=== PATIENT | female | born 1965 | race Caucasian/White ===

== ENCOUNTER 2018-02-27 08:07 | Emergency (ER) | payer OTHER ==
[2018-02-27 08:19] VITALS: BP 156/97
--- NOTE | 2018-02-27 09:29 | UC ---
Shara Bustillo Rebecca, scribed for Ellyn Sahu MD on 02/27/18 at 0842 . Back Pain HPI - HPI Summary HPI Summary: Pt is a 52 y/o F who presents to [facility] c/o acute on chronic back pain. Sx have been gradually worsening for the last week, especially last night. Denies any injury or trauma. Last night, she was unable to stand straight prior to going to bed. Hurts with any movement. Pain radiation down her left leg . She has been experiencing chronic back pain for 3 years which has been "liveable" while being less active. She has seen 2 neurosurgeons (Dr. Gomez and one in [facility], both of whom want to do a fusion) and her last MRI was last fall which shows spondylolisthesis of L4-L5, L5-S1, per pt. On triage, pain is severe, ranked 9/ 10 and radiates down the L buttock and anteriorly down the entire LLE. Takes Celebrex 200 mg BID, both yesterday morning and night and this morning took 3 ASA instead of Celebrex. Sx alleviated by bending and a chiropractor appointment yesterday, aggravated by standing straight. Additionally c/o left quadriceps muscle spasms and acute on chronic LLE weakness. Notes chronic foot numbness, unchanged. Denies urinary or bowel incontinence, fever, chills, dizziness, OJEDA, CP, SOB, abdominal pain, N/V/D, constipation. Negative trauma and drove herself today. - History of Current Complaint Chief Complaint: UCBackPain Stated Complaint: BACK PAIN Time Seen by Provider: 02/27/18 08:24 Hx Obtained From: Patient Hx Last Menstrual Period: current Onset/Duration: Still Present, Worse Since - 1 week, jonas. last night Severity Currently: Severe Pain Intensity: 9 Pain Scale Used: 0-10 Numeric Back Pain: Is Discrete @ - Lumbar back, Radiates To - L buttock and anterior LLE Aggravating Factor(s): Other - Standing Alleviating Factor(s): Other - Bending over, chiropractor appt. Associated Signs And Symptoms: Positive: Weakness - Acute on chronic LLE weakness, Numbness - Chronic foot. Negative: Fever, Bladder Incontinence, Bowel Incontinence - Allergies/Home Medications Allergies/Adverse Reactions: Allergies Allergy/AdvReac Type Severity Reaction Status Date / Time No Known Allergies Allergy Verified 02/27/18 08:19 Home Medications: Home Medications Ascorbic Acid TAB* [Vitamin C TAB*] 500 mg PO DAILY 02/27/18 [History Confirmed 02/27/18] Aspirin [Fanta Advanced] 1,500 mg PO DAILY PRN 02/27/18 [History Confirmed 02/27] Glucosamine Sulfate Dipot Chlr [Gnp Glucosamine Maximum S] 1,000 mg PO DAILY [History Confirmed 02/27/18] Loratadine 10 mg PO DAILY PRN 02/27/18 [History Confirmed 02/27/18] celeCOXIB CAP* [CeleBREX CAP*] 200 mg PO DAILY PRN 02/27/18 [History Confirmed 02/27/18] PMH/Surg Hx/FS Hx/Imm Hx - Additional Past Medical History Additional PMH: PMHx: Back pain Endocrine History: Other Other Endocrine History: NEGATIVE: DM Cardiovascular History: Other Other Cardiovascular History: NEGATIVE: HTN - Surgical History Surgical History: Yes Surgery Procedure, Year, and Place: SINUS SURGURY- 2013 DEAVIATED SEPTUM BUNION REMOVED LT FOOT 10 YRS AGO. CARPAL TUNNEL BILATERAL WRISTS-TUBAL LIGATION - Family History Known Family History: Positive: Other - Hx Pancreatic CA (mother) - Social History Alcohol Use: Rare Substance Use Type: None Smoking Status (MU): Never Smoked Tobacco Review of Systems Constitutional: Negative Skin: Negative Eyes: Negative ENT: Negative Respiratory: Negative Cardiovascular: Negative Gastrointestinal: Negative Genitourinary: Negative Motor: Negative Neurovascular: Negative Musculoskeletal: Other: - Acute on chronic back pain, left quadriceps muscle spasm Neurological: Weakness - Acute on chronic LLE weakness, Numbness - Chronic foot numbness Psychological: Negative All Other Systems Reviewed And Are Negative: Yes - Comments Additional Review of Systems Comments: NEGATIVE:Urinary or bowel incontinence, fever, chills, dizziness, OJEDA, CP, SOB, abdominal pain, N/V/D, constipation Physical Exam Triage Information Reviewed: Yes Appearance: Pain Distress Vital Signs: Initial Vital Signs Temp 97.8 F 02/27/18 08:12 Pulse 69 02/27/18 08:12 Resp 16 02/27/18 08:12 BP 156/97 02/27/18 08:12 Pulse Ox 100 02/27/18 08:12 Vital Signs Reviewed: Yes ENT: Positive: Hearing grossly normal. Negative: Muffled voice, Hoarse voice Neck exam: Normal Neck: Positive: Supple, Nontender Respiratory Exam: Normal Respiratory: Positive: Lungs clear, Normal breath sounds, No respiratory distress. Negative: Respiratory distress, Crackles, Rhonchi, Stridor, Wheezing Cardiovascular Exam: Normal Cardiovascular: Positive: RRR, No Murmur Musculoskeletal: Positive: Other: - L spine: tenderness is noted at the midline L4L45 and L5S1 and left SI joint . SLrt is positive on left and also has positiev contralateral side. DTR are reduces at knee on left Sensatoins intact Neurological: Positive: Alert, Muscle Tone Normal, Other: - weakness due to pain Psychological: Positive: Age Appropriate Behavior Skin Exam: Normal Skin: Negative: rashes Back Pain Course/Dx - Course Course Of Treatment: MRI 08/2017: DIFFUSE DEGENERATIVE DISC DISEASE AND FACET OSTEOARTHRITIS WITH CHANGES MOST. PROMINENT AT THE L4-L5 LEVEL. AT THAT LEVEL THERE IS MODERATE TO SEVERE SPINAL CANAL. NARROWING. We discussed tretament options and alternatives, plan to control pain . Prescribe the percocet, flexeril and medrol dose cyn, [facility]. - Differential Dx/Diagnosis Differential Diagnosis/HQI/PQRI: Herniated Disc, Strain Provider Diagnoses: Lumbar radiculopathy, spinal stenosis. Discharge - Sign-Out/Discharge Documenting (check all that apply): Discharge/Admit/Transfer - Discharge - Discharge Plan Condition: Stable Disposition: HOME Prescriptions: Cyclobenzaprine TAB* [Flexeril 10 MG TAB*] 10 mg PO TID PRN 10 Days #30 tab PRN Reason: Spasms - Back methylPREDNISolone [Medrol Dosepak 4 MG*] 0 mg PO .SEE CYN INSTRUCTION #1 tab Oxycodone HCl/Acetaminophen [Percocet 5-325 mg Tablet] 1 each PO Q8HR PRN #20 tablet MDD 3 PRN Reason: Pain Patient Education Materials: Lumbar Radiculopathy (ED), Back Pain (ED) Referrals: Ana Cristina Cantor MD [Primary Care Provider] - Bharat Gomez MD [Medical Doctor] - 3 Days Additional Instructions: Start taking the medications as prescribed. It has been prescribed to the pharmacy . Follow up with your spine in 2 to 3 days. Patients blood pressure slightly high in Urgent care today , plan follow up with PCP for better control Return to Urgent care / ER if symptoms get worse. - Billing Disposition and Condition Condition: STABLE Disposition: Home The documentation as recorded by the Shara pittman Rebecca accurately reflects the service I personally performed and the decisions made by me, Ellyn Sahu MD.
== END 2018-02-27 09:07 | disposition home or self-care (01) ==
LOC: UCEAST 08:07
DX: M54.16 Radiculopathy, lumbar region (principal); M48.061 Spinal stenosis, lumbar region without neurogenic claudication; M62.838 Other muscle spasm; R20.0 Anesthesia of skin; Z80.0 Family history of malignant neoplasm of digestive organs
CPT/HCPCS: 99212; G0463

== ENCOUNTER 2018-03-03 12:01 | Emergency (ER) | payer OTHER ==
[2018-03-03] MEDS ORDERED: Methocarbamol* 100 MG/ML 10 ML VIAL IV ONE ×2 (12:48→14:00)
[2018-03-03] MEDS ORDERED: Dexamethasone IV* 4 MG/ML 1 ML (4 MG) IV SLOW PU ONE (12:48)
[2018-03-03 12:56] LABS: ABS Basophils 0.1 10^3/ul (0-0.2); ABS Eosinophils 0.1 10^3/ul (0-0.6); ABS Lymphocytes 1.7 10^3/ul (1.0-4.8); ABS Monocytes 0.4 10^3/ul (0-0.8); ABS Neutrophils 4.6 10^3/ul (1.5-7.7); ABS Nucleated RBC 0 10^3/ul; Eosinophil % 0.8 % (0-6); Hematocrit 42 % (35-47); Hemoglobin 14.3 g/dl (12.0-16.0); Lymphocyte % 24.5 % (25-47); Mean Corpuscular HGB Conc 34 g/dl (31-36); Mean Corpuscular Hemoglobin 30 pg (27-31); Mean Corpuscular Volume 87 fL (80-97); Mean Platelet Volume 7.4 um3 (7.4-10.4); Nucleated Red Blood Cells % 0; Platelet Count 232 10^3/ul (150-450); Red Blood Count 4.84 10^6/ul (4.00-5.40); Red Cell Distribution Width 13 % (10.5-15); White Blood Count 6.7 10^3/ul (3.5-10.8)
[2018-03-03 13:19] LABS: EGFR Non-African American 70.9 (>60)
--- NOTE | 2018-03-03 14:01 | ED ---
Back Pain - HPI Summary HPI Summary: 52-year-old female presents with acute on chronic back pain. Pain is mostly in on left side of her back. Has a history of back pain in similar location. Has done PT chiropractor acupuncture. Was seen in urgent care last week and given Percocet flexeril and medrol which has been taking. Pain has not been improving. Has a worsening pain down the right leg. She states that it feels weak. Has appointment with neurosurgery next month. had MRI in July. States did not believe anything would have changes with a new MRI. No new injury. No fevers. Pain is in worsening over the past week. Hurts worse when she tries to move. 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 She's been taking Celebrex daily. She also admits to left quad pain that has gotten better with muscle relaxer. Has chronic leg numbness unchanged. No saddle anesthesia, dysuria, or loss of bowel or bladder. No abdominal pain. No nausea and no vomiting. No constipation. last MRI was last fall which shows spondylolisthesis of L4-L5, L5-S1, per pt. - History of Current Complaint Chief Complaint: EDBackInjuryPain Stated Complaint: BACK PAIN Time Seen by Provider: 03/03/18 12:30 Hx Last Menstrual Period: current Pain Intensity: 9 - Allergies/Home Medications Allergies/Adverse Reactions: Allergies Allergy/AdvReac Type Severity Reaction Status Date / Time No Known Allergies Allergy Verified 02/27/18 08:19 Home Medications: Home Medications Ascorbic Acid TAB* [Vitamin C TAB*] 500 mg PO DAILY 03/03/18 [History Confirmed 03/03/18] Cholecalciferol TAB* [Vitamin D TAB*] 400 unit PO DAILY 03/03/18 [History Confirmed 03/03/18] Cyclobenzaprine TAB* [Flexeril 10 MG TAB*] 10 mg PO TID PRN 03/03/18 [History Confirmed 03/03/18] Glucosamine CAP (NF) 1 cap PO DAILY 03/03/18 [History Confirmed 03/03/18] LoraTADine TAB(NF) [Claritin 10 MG TAB(NF)] 10 mg PO DAILY PRN 03/03/18 [ History Confirmed 03/03/18] Multivitamins/Minerals TAB* [Theragran/minerals TAB*] 1 tab PO DAILY 03/03/18 [ History Confirmed 03/03/18] celeCOXIB CAP* [CeleBREX CAP*] 200 mg PO DAILY 03/03/18 [History Confirmed 03/03] oxyCODONE/Acetamin 5/325 MG* [Percocet 5/325 TAB*] 1 tab PO Q8H PRN 03/03/18 [ History Confirmed 03/03/18] PMH/Surg Hx/FS Hx/Imm Hx Endocrine/Hematology History: Denies: Hx Diabetes Cardiovascular History: Denies: Hx Hypertension, Hx Pacemaker/ICD History: Denies: Hx Renal Disease Musculoskeletal History: Reports: Hx Scoliosis - HX EXAM AT 9 OR 11 AGE Sensory History: Denies: Hx Hearing Aid Neurological History: Denies: Hx Headaches Psychiatric History: Denies: Hx Panic Disorder - Surgical History Surgery Procedure, Year, and Place: SINUS SURGURY- 2014 DEAVIATED SEPTUM BUNION REMOVED LT FOOT 10 YRS AGO. CARPAL TUNNEL BILATERAL WRISTS-TUBAL LIGATION Infectious Disease History: No Infectious Disease History: Denies: Traveled Outside the [place] in Last 30 Days - Family History Known Family History: Positive: Other - Hx Pancreatic CA (mother) - Social History Alcohol Use: Rare Substance Use Type: Reports: None Smoking Status (MU): Never Smoked Tobacco Review of Systems Negative: Fever Negative: Chest Pain Negative: Shortness Of Breath Positive: Myalgia - back pain Positive: Paresthesia - left leg, Numbness - left leg All Other Systems Reviewed And Are Negative: Yes Physical Exam Triage Information Reviewed: Yes Vital Signs On Initial Exam: Initial Vitals Temp Pulse Resp BP Pulse Ox 97.5 F 74 16 137/93 97 03/03/18 12:19 03/03/18 12:19 03/03/18 12:19 03/03/18 12:19 03/03/18 12:19 Vital Signs Reviewed: Yes Appearance: Positive: Well-Appearing Skin: Positive: Warm, Dry Head/Face: Positive: Normal Head/Face Inspection Eyes: Positive: Normal, Conjunctiva Clear Respiratory/Lung Sounds: Positive: Clear to Auscultation, Breath Sounds Present Cardiovascular: Positive: Normal, RRR Musculoskeletal: Positive: Strength/ROM Intact - back, Other - tenderness over left SI joint, pos SLR, good pulses, decreased gross sensation left leg Neurological: Positive: Abnormal Reflex @ - patella left decreased, Babinski Left - normal Psychiatric: Positive: Normal Diagnostics - Vital Signs Vital Signs Temp Pulse Resp BP Pulse Ox 03/03/18 12:19 97.5 F 74 16 137/93 97 - Laboratory Lab Results: Lab Results 03/03/18 03/03/18 Range/Units 12:45 12:45 WBC 6.7 (3.5-10.8) 10^3/ul RBC 4.84 (4.00-5.40) 10^6/ul Hgb 14.3 (12.0-16.0) g/dl Hct 42 (35-47) % MCV 87 (80-97) fL MCH 30 (27-31) pg MCHC 34 (31-36) g/dl RDW 13 (10.5-15) % Plt Count 232 (150-450) 10^3/ul MPV 7.4 (7.4-10.4) um3 Neut % (Auto) 68.4 (38-83) % Lymph % (Auto) 24.5 L (25-47) % [place] % (Auto) 5.4 (0-7) % Eos % (Auto) 0.8 (0-6) % Baso % (Auto) 0.9 (0-2) % Absolute Neuts (auto) 4.6 (1.5-7.7) 10^3/ul Absolute Lymphs (auto) 1.7 (1.0-4.8) 10^3/ul Absolute Monos (auto) 0.4 (0-0.8) 10^3/ul Absolute Eos (auto) 0.1 (0-0.6) 10^3/ul Absolute Basos (auto) 0.1 (0-0.2) 10^3/ul Absolute Nucleated RBC 0 10^3/ul Nucleated RBC % 0 Sodium 140 (135-145) mmol/L Potassium 3.5 (3.5-5.0) mmol/L Chloride 102 (101-111) mmol/L Carbon Dioxide 32 (22-32) mmol/L Anion Gap 6 (2-11) mmol/L BUN 11 (6-24) mg/dL Creatinine 0.84 (0.51-0.95) mg/dL Est GFR ( Amer) 85.8 (>60) Est GFR (Non-Af Amer) 70.9 (>60) BUN/Creatinine Ratio 13.1 (8-20) Glucose 94 (70-100) mg/dL Calcium 9.2 (8.6-10.3) mg/dL Total Bilirubin 1.10 H (0.2-1.0) mg/dL AST 54 H (13-39) U/L ALT 41 (7-52) U/L Alkaline Phosphatase 63 (34-104) U/L C-Reactive Protein < 1.00 (<8.01) mg/L Total Protein 6.8 (6.4-8.9) g/dL Albumin 4.1 (3.2-5.2) g/dL Globulin 2.7 (2-4) g/dL Albumin/Globulin Ratio 1.5 (1-3) Result Diagrams: 03/03/18 12:45 03/03/18 12:45 Lab Statement: Any lab studies that have been ordered have been reviewed, and results considered in the medical decision making process. Re-Evaluation - Re-Evaluation First Eval Re-Evaluation Time: 15:39 Change: Improved Comment: less numbness and tingling in left leg with robaxin Back Pain Course/Dx - Course Course Of Treatment: 52-year-old female presents with acute on chronic back pain. Pain is mostly in on left side of her back. Has a history of back pain in similar location. Has done PT chiropractor acupuncture. Was seen in urgent care last week and given Percocet flexeril and medrol which has been taking. Pain has not been improving. Has a worsening pain down the right leg. She states that it feels weak. Has appointment with neurosurgery next month. had MRI in July. States did not believe anything would have changes with a new MRI. No new injury. No fevers. Pain is in worsening over the past week. Hurts worse when she tries to move. 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 She's been taking Celebrex daily. She also admits to left quad pain that has gotten better with muscle relaxer. Has chronic leg numbness unchanged. No saddle anesthesia, dysuria, or loss of bowel or bladder. No abdominal pain. No nausea and no vomiting. No constipation. last MRI was last fall which shows spondylolisthesis of L4-L5, L5-S1, per pt. on exam tenderness left side of the lower back. No midline tenderness. Tenderness over SI joint. Positive straight leg raise. Decreased gross sensation left side. Decreased patellar reflex. Babinskis normal. Discussed getting an MRI and patient declined. wbc and crp normal. Urine normal. Gave Decadron and Robaxin and feeling much better. able to ambulate with canes around ED. will have follow up with neurosurgery. patient understand and agrees with plan. - Diagnoses Differential Diagnosis/HQI/PQRI: Positive: Herniated Disc, Strain, Sprain Provider Diagnoses: Back pain Discharge - Sign-Out/Discharge Documenting (check all that apply): Discharge/Admit/Transfer - Discharge Plan Condition: Good Disposition: HOME Prescriptions: Methocarbamol TAB* [Robaxin 500 MG TAB*] 750 mg PO TID PRN #21 tab PRN Reason: Pain Patient Education Materials: Back Pain (ED) Referrals: Ana Cristina Cantor MD [Primary Care Provider] - Bharat Gomez MD [Medical Doctor] - Additional Instructions: Take muscle relaxers three times a day Use ibuprofen or Tylenol for pain every 6 hours ice/heat area, move as much as possible Follow up with primary within 5 days follow up with neurosurgery Return to ED if develop any new or worsening symptoms - Billing Disposition and Condition Condition: GOOD Disposition: Home
[2018-03-03 14:06] LABS: Urine Appearance Clear; Urine Blood Negative (Negative); Urine Color Straw; Urine Ketones Negative (Negative); Urine Protein Negative (Negative); Urine Specific Gravity 1.004 (1.010-1.030); Urine Urobilinogen Negative (Negative)
[2018-03-03] MEDS ORDERED: Lidocaine PATCH 5%* 1 PATCH TRANSDERM SCH (15:00)
[2018-03-03] MEDS ORDERED: Morphine VIAL* 4 MG/ML VIAL (1 ml vial) IV ONE (15:11)
[2018-03-03] MEDS ORDERED: Ketorolac INJ* 30 MG/ML 1 ML VIAL IV PUSH ONE (15:33)
[2018-03-03 16:42] VITALS: BP 168/92
[2018-03-03] MEDS ORDERED: Lidocaine Patch REMOVE* 1 NOTE MISC PATCH OFF ONE (21:00)
== END 2018-03-03 17:20 | disposition home or self-care (01) ==
LOC: ED 12:01
DX: M54.9 Dorsalgia, unspecified (principal); G89.29 Other chronic pain; M41.9 Scoliosis, unspecified; R20.0 Anesthesia of skin
CPT/HCPCS: 36415; 80053; 81003; 85025; 86140; 96374; 96375; 96376; 99283; A9270-GY; J1100; J1885; J2800

== ENCOUNTER 2018-05-27 07:30 | Inpatient (IN) | payer OTHER ==
[2018-07-14] MEDS ORDERED: Buffered Lidocaine 0.9% SYRIN* 5 ML/SYR SYRINGE INTRADERM ONE (12:35)
[2018-07-15] MEDS ORDERED: Famotidine IV* 10 MG/ML 2 ML (20 mg) IV ONE (06:00)
--- OUTSIDE RECORDS SUMMARY | 2018-07-15 06:05 | XMS REPORT ---
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 HTN, one sister - bipolar - [place]. Social History Type Date Description Comments Education Highest Level Completed, Industrial and Labor Master's Degree Relations. [place]. 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 Cigarette Use Never Smoked Cigarettes exposed to second hand smoke growing up. both parents smoked. ETOH Use Rare not even 1 a month. Smoking Patient has never smoked Exercise Type/Frequency Exercises regularly walks to work daily. 12-14,000 steps a day. Stairs. Stretching. Seat Belt/Car Seat Always uses seat belt Dom Violence Screen screening has been done feels safe at home, at work, and in the community. Allergies, Adverse Reactions, Alerts Date Description Reaction Status Severity Comments 02/14/2016 NKDA active Medications Medication Date Status Form Strength Qnty SIG Indications Ordering Provider Oxycodone-Acet 07/09/20 Active Tablets 5-325mg 60tabs 1 by Z01.818 Ana Cristina Mcfadden aminophen 18 mouth Devaughn, every 6 M.D. hours as needed for pain M79.605 Epinephrine 08/13/2017 Active Solution 0.3mg/0.3ML 2units inject Z91.030 Ana Cristina Mcfadden Auto-Inject as Devaughn, needed. M.D. Sumatriptan 08/13/2017 Active Tablets 50mg 9tabs take 1 G43.009 Ana Cristina Mcfadden Succinate tablet Devaughn, by mouth M.D. at onset of headache - repeat in 2 hours Celebrex 08/13/2017 Active Capsules 200mg 60caps 1 by M54.5 Ana Cristina Mcfadden mouth Devaughn, twice M.D. daily M79.605 Desloratadine 03/18/2016 Active Tablets 5mg 30tabs 1 by J30.89 Ana Cristina Mcfadden mouth Devaughn, daily M.D. Vitamin D Active Tablets 500 Unknown (Cholecalciferol ) Fluticasone Active Suspension 50mcg 16units 2 sprays Ana Cristina Mcfadden Propionate /Act each Devaughn, nostril M.D. daily Methocarbamol 03/11/2018 - Hx Tablets 500mg 135tabs 1.5 by M48.00 Shelley 07/09/2018 mouth Zari, three AGENT BASED MODELER times a day M79.605 Oxycodone-Acetaminophen 03/11/2018 - Hx Tablets 5-325mg 40tabs 1 by M48.00 Shelley 07/09/2018 mouth Zari, two AGENT BASED MODELER times a day as needed M79.605 Physical Therapy 08/28/2017 - Shahla evaluate and Ana Cristina Mcfadden 09/10/2017 treat low Ruslan Cantor back pain Adrenaclick 08/13/2017 - Hx 2unit inject as Z91.0 Ana Cristina Mcfadden 0.3MG/0.3ML 09/10/2017 s needed 30 Ruslan Cantor Physical Therapy 08/18/2016 - Hx evaluate and M54.4 Ana Cristina Mcfadden 08/13/2017 treat low 2 Ruslan Cantor back pain [place]. Mobic 08/18/2016 - Hx Tablets 7.5mg 30tab 1 by mouth M54.4 Ana Cristina L. 08/13/2017 s every 2 Ruslan Cantor morning. Ketoprofen 03/18/2016 - Hx Capsules 75mg 120ca 1 by mouth up M54.5 Ana Cristina Mcfadden 09/10/2017 ps to four times Ruslan Cantor a day with food in your stomach No Active 02/14/2016 - Hx Unknown Medications 02/14/2016 Escitalopram 02/14/2016 - Hx Tablets 10mg 30tab 1 by mouth F43.2 Ana Cristina Brown. Oxalate 08/18/2016 s every day 3 Ruslan Cantor Sumatriptan - Hx Tablets 50mg take 1 tablet Unknown Succinate 09/10/2017 by mouth at onset of headache - repeat in 2 hours Immunizations CPT Code Status Date Vaccine Lot # [id number] Given 07/09/2018 Influenza Vac, Quadrivalent, Slit Virus, Im [id number] U-Rabies Given 12/09/2012 Rabies,Unspecified 97848 Given 12/05/2012 Typhoid Immunization 05880 Given 11/13/2010 Hep A & Hep B Adult, adult dosage, for intramuscular use [id number] Given 07/19/2010 Hep A & Hep B Adult, adult dosage, for intramuscular use 91525 Given 04/17/2010 Hep A & Hep B Adult, adult dosage, for intramuscular use Vital Signs Date Vital Result Comment 07/14/2018 BP Systolic 144 mmHg BP Diastolic 82 mmHg Heart Rate 88 /min Body Temperature 97.7 F Respiratory Rate 16 /min Height 64 inches 5'4" Weight 157.00 lb BMI (Body Mass Index) 26.9 kg/m2 03/11/2018 BP Systolic 122 mmHg BP Diastolic 88 mmHg Heart Rate 72 /min Body Temperature 97.9 F Respiratory Rate 16 /min Height 64 inches 5'4" 09/11/2017 BP Systolic 118 mmHg BP Diastolic 74 mmHg Heart Rate 76 /min Body Temperature 97.0 F Height 64 inches 5'4" Weight 167.38 lb BMI (Body Mass Index) 28.7 kg/m2 08/13/2017 BP Systolic 110 mmHg BP Diastolic 80 mmHg Heart Rate 68 /min Body Temperature 98.3 F Respiratory Rate 16 /min Height 64 inches 5'4" Weight 163.00 lb BMI (Body Mass Index) 28.0 kg/m2 08/18/2016 BP Systolic 120 mmHg BP Diastolic 80 mmHg Heart Rate 72 /min Body Temperature 98.0 F Respiratory Rate 18 /min Height 63.5 inches 5'3.50" Weight 183.00 lb BMI (Body Mass Index) 31.9 kg/m2 03/18/2016 BP Systolic 110 mmHg BP Diastolic 74 mmHg Heart Rate 74 /min Body Temperature 97.9 F Respiratory Rate 18 /min Height 63.5 inches 5'3.50" Weight 170.00 lb BMI (Body Mass Index) 29.6 kg/m2 02/14/2016 BP Systolic 110 mmHg BP Diastolic 80 mmHg Heart Rate 60 /min Body Temperature 98.0 F Respiratory Rate 18 /min Height 63.5 inches 5'3.50" Weight 166.00 lb BMI (Body Mass Index) 28.9 kg/m2 Results Test Date Test Result H/L Range Note Comprehensive Metabolic Prof 08/05/2017 Sodium 146 mEq/L 134-149 Potassium 4.4 mEq/L 3.6-5.5 Chloride 108 mEq/L 94-112 Carbon Dioxide 25 mEq/L 21-32 Glucose 95 mg/dL 70-105 BUN 10 mg/dL 6-26 Creatinine 0.9 mg/dL 0.6-1.4 BUN/Creat Ratio 11.1 CALC 8.0-36.0 Calcium 9.1 mg/dL 8.6-10.2 Total Protein 6.1 g/dL Low 6.4-8.3 1 Albumin 4.1 g/dL 3.8-5.5 Globulin 2.0 g/dL 2.0-4.8 A/G Ratio 2.1 CALC 0.6-2.3 Alk. Phosphatase 68 U/L 30-110 Alt (SGPT) 21 U/L 7-35 Ast (Sgot) 24 U/L 5-34 Total Bilirubin 0.7 mg/dL 0.2-1.3 GFR Non- >60 ml/min/1.73m^ >=60 GFR >60 ml/min/1.73m^ >=60 Complete Blood Count 08/05/2017 WBC 5.2 x10^3/UL 3.6-9.6 RBC 4.61 x10^6/UL 3.90-5.70 HGB 13.8 g/dL 12.1-17.2 HCT 40 % 36-50 MCV 87.0 fL 82.2-97.4 MCH 29.9 pg 27.6-33.3 MCHC 34.5 g/dL 33.0-35.5 RDW 13.5 % 11.6-13.7 PLT 235 x10^3/UL 150-400 MPV 8.2 fL 7.4-10.4 Gran # 3.4 x10^3/UL 1.5-7.2 Lymph# 1.6 x10^3/UL 0.7-4.9 Alexander# 0.2 x10^3/UL 0.1-0.9 Gran % 63.1 % 42.2-75.2 Lymph % 32.1 % 20.5-51.1 Alexander% 4.8 % 1.7-9.3 Lipid Profile 08/05/2017 Cholesterol 176 mg/dL 120-200 Triglycerides 97 mg/dL 30-200 HDL Cholesterol 62 mg/dL 30-85 LDL (Calculated) 95 CALC 0-129 VLDL Cholesterol 19 mg/dL 0-50 HDL Risk Factor 2.8 CALC 0.0-4.4 Laboratory test finding 08/05/2017 TSH 1.27 mIU/L 0.50-6.00 Lipid Profile 03/07/2016 Cholesterol 214 mg/dL High 120-200 Triglycerides 151 mg/dL 30-200 HDL Cholesterol 53 mg/dL 30-85 LDL (Calculated) 131 CALC High 0-129 VLDL Cholesterol 30 mg/dL 0-50 HDL Risk Factor 4.0 CALC 0.0-4.4 Laboratory test finding 03/07/2016 Vitamin D25 51 30-100 2 Complete Blood Count 03/07/2016 WBC 5.4 x10^3/UL 3.6-9.6 RBC 4.72 x10^6/UL 3.90-5.70 HGB 14.1 g/dL 12.1-17.2 HCT 42 % 36-50 MCV 89.0 fL 82.2-97.4 MCH 29.9 pg 27.6-33.3 MCHC 33.5 g/dL 33.0-35.5 RDW 13.2 % 11.6-13.7 PLT 203 x10^3/UL 150-400 MPV 6.7 fL Low 7.4-10.4 Gran # 3.6 x10^3/UL 1.5-7.2 Lymph# 1.5 x10^3/UL 0.7-4.9 Alexander# 0.3 x10^3/UL 0.1-0.9 Gran % 64.1 % 42.2-75.2 Lymph % 29.8 % 20.5-51.1 Alexander% 6.1 % 1.7-9.3 Comprehensive Metabolic Prof 03/07/2016 Sodium 140 mEq/L 134-149 Potassium 4.8 mEq/L 3.6-5.5 Chloride 102 mEq/L 94-112 Carbon Dioxide 26 mEq/L 21-32 Glucose 102 mg/dL 70-105 BUN 9 mg/dL 6-26 Creatinine 0.9 mg/dL 0.6-1.4 BUN/Creat Ratio 10.0 CALC 8.0-36.0 Calcium 8.9 mg/dL 8.6-10.2 Total Protein 6.4 g/dL 6.4-8.3 Albumin 3.8 g/dL 3.8-5.5 Globulin 2.6 g/dL 2.0-4.8 A/G Ratio 1.5 CALC 0.6-2.3 Alk. Phosphatase 72 U/L 30-110 Alt (SGPT) 18 U/L 7-35 Ast (Sgot) 25 U/L 5-34 Total Bilirubin 0.6 mg/dL 0.2-1.3 GFR Non- >60 ml/min/1.73m^ >=60 GFR >60 ml/min/1.73m^ >=60 Laboratory test finding 03/07/2016 TSH 2.35 mIU/L 0.50-6.00 Free T4 0.68 ng/dL Low 0.75-1.54 3 1 RESULTS VERIFIED BY REPEAT ANALYSIS 2 FASTING 3 RESULTS VERIFIED BY REPEAT ANALYSIS Procedures Date CPT Code Description Status 08/13/2017 67013 CPHL SHQ Completed 07/08/2017 Mammogram Completed 05/06/2016 Colonoscopy Completed 04/01/2016 Mammogram Completed Encounters Type Date Location Provider CPT E/M Dx Office Visit 03/11/2018 4:15p [facility] Office [place] [address] M48.00 M79.605 Office Visit 09/11/2017 9:20a [facility] Ana Cristina Cantor M.D. 85066 M48.00 Office Visit 08/13/2017 9:00a [facility] Ana Cristina Cantor M.D. 18589 Z00.00 Z91.030 G43.009 M54.5 Office Visit 08/18/2016 2:40p [facility] Ana Cristina Cantor M.D. 91881 M54.42 Office Visit 03/18/2016 3:40p [facility] Ana Cristina Cantor M.D. 30628 M54.5 J30.89 Office Visit 02/14/2016 1:00p [facility] Office Ana Cristina Cantor M.D. 53521 Z00.00 F43.23 E55.9 Plan of Care Future Appointment(s):08/12/2018 7:00 pm - Ana Cristina Cantor M.D. at Main [facility]07/14/2018 - Any Reed, FNPJ06.9 Acute upper respiratory infection , unspecifiedAllComments:~B_~U_Medication Management~b_~u_ Patient Understands medications he 's taking? Yes No Are there Barriers to Adherence? Yes No Has the patient been asked about herbal supplements and therapies, and OTC meds? Yes No As always, we strongly encourage a healthy diet and makingphysical activity a part of your every day life. If you have questions about how or where to start, please contact the office.
--- OUTSIDE RECORDS SUMMARY | 2018-07-15 06:05 | XMS REPORT ---
:1965 External Reference #:[id number] Author Organization [employer] Address [address] [place] [address] [place] [address] Phone [phone] Care Team Providers Name Role Phone Ana Cristina Cantor MD Primary Care Physician Unavailable Payers Type Date Identification Numbers Payment Provider Subscriber Commercial Policy Number: [id number] [employer] Catalina Ruvalcaba PayID: [id number] [address] [place] [address] Problems Date Description Provider Status Onset: 08/25/2017 Low back pain Bharat Gomez MD Active Onset: 08/25/2017 Lumbar spondylosis Bharat Gomez MD Active Onset: 09/08/2017 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 Onset: 09/08/2017 Lumbar spondylolisthesis Bharat Gomez MD Active Family History Date Family Member(s) Problem(s) Comments Father Emphysema 86 Mother due to Pancreatic Cancer () - 57 Siblings 5 Social History Type Date Description Comments Lives With Alone Occupation [employer] ETOH Use Rarely consumes alcohol Smoking Patient has never smoked Recreational Drug Use Denies Drug Use Daily Caffeine Consumes on average 1 cup of hot tea per day Exercise Type/Frequency Exercises sporadically walking Allergies, Adverse Reactions, Alerts Date Description Reaction Status Severity Comments 08/21/2017 NKDA active Medications Medication Date Status Form Strength Qnty SIG Indications Ordering Provider Sumatriptan 00/00 Active Tablets 50mg As needed Unknown Succinate /0000 Epinephrine 00/00 Active Solution 0.3mg/0.3 use as Unknown /0000 Auto-Inject ML directed by prescriber Fluticasone 0000 Active Suspension 50mcg/Act 1 spray Unknown Propionate /0000 each nostril as needed Celecoxib 00 Hx Capsules 200mg take 1 Unknown /0000 capsule by - mouth twice 07/09 a day Methocarbamol 00 Hx Tablets 500mg take 1 and Unknown /0000 1/2 tablets - (750 MG) by 03/12 mouth times a day as Needed Oxycodone-Acetam Hx Tablets 5-325mg take 1 Unknown inophen /0000 tablet by - mouth every 02/10 8 hours needed for pain Cyclobenzaprine Hx Tablets 10mg take 1 Unknown HCL /0000 tablet by - mouth three 07/09 times a day if needed For Back Spasms Advil Hx Tablets 200mg as needed Unknown - 01/10 Same Hx Tablets 400mg - 07/09 Grape Seed Hx Tablets 50mg Unknown - 07/09 Glucosamine Hx Capsules 500Comp 1 by mouth Unknown Chondroitin 500 /0000 twice a day Complex - 07/09 Vitamin C Hx daily - 07/09 Vitamin D Hx daily Unknown - 07/09 Vital Signs Date Vital Result Comment 07/12/2018 Height 64 inches 5'4" Weight 159.00 lb Heart Rate 60 /min BP Systolic Sitting 150 mmHg BP Diastolic Sitting 84 mmHg Respiratory Rate 16 /min Body Temperature 96.8 F BMI (Body Mass Index) 27.3 kg/m2 04/12/2018 Height 64 inches 5'4" Weight 154.00 lb Heart Rate 82 /min BP Systolic Sitting 130 mmHg BP Diastolic Sitting 84 mmHg Respiratory Rate 16 /min Pain Level 2 BMI (Body Mass Index) 26.4 kg/m2 03/11/2018 BP Systolic Sitting 124 mmHg Lue reg cuff BP Diastolic Sitting 88 mmHg Lue reg cuff Body Temperature 97.5 F 09/08/2017 Height 64 inches 5'4" Weight 162.00 lb Heart Rate 66 /min BP Systolic Sitting 112 mmHg BP Diastolic Sitting 78 mmHg Pain Level 4 BMI (Body Mass Index) 27.8 kg/m2 08/25/2017 Height 64 inches 5'4" Weight 162.00 lb Heart Rate 60 /min BP Systolic Sitting 124 mmHg BP Diastolic Sitting 71 mmHg Pain Level 2 BMI (Body Mass Index) 27.8 kg/m2 Results Test Date Test Result H/L Range Note CBC No Diff 07/08/2018 White Blood Count 6.9 10^3/uL 3.5-10.8 Red Blood Count 4.75 10^6/uL 4.00-5.40 Hemoglobin 13.6 g/dL 12.0-16.0 Hematocrit 41 % 35-47 Mean Corpuscular Volume 87 fL 80-97 Mean Corpuscular Hemoglobin 29 pg 27-31 Mean Corpuscular HGB Conc 33 g/dL 31-36 Red Cell Distribution Width 13 % 10.5-15 Platelet Count 202 10^3/uL 150-450 Mean Platelet Volume 8.0 um3 7.4-10.4 Type & Screen 07/08/2018 Patient Blood Type O Positive Antibody Screen NEGATIVE Inr/Protime 07/08/2018 Inr 0.93 0.77-1.02 Laboratory test finding 07/08/2018 Partial Thrombo Time 30.9 seconds 26.0 -36.3 PTT Basic Metabolic Panel 07/08/2018 Sodium 140 mmol/L 135-145 Potassium 4.3 mmol/L 3.5-5.0 Chloride 106 mmol/L 101-111 Co2 Carbon Dioxide 30 mmol/L 22-32 Anion Gap 4 mmol/L 2-11 Glucose 90 mg/dL 70-100 Blood Urea Nitrogen 10 mg/dL 6-24 Creatinine 0.76 mg/dL 0.51-0.95 BUN/Creatinine Ratio 13.2 8-20 Calcium 9.1 mg/dL 8.6-10.3 Egfr Non- 79.6 >60 Egfr 96.3 >60 1 Urinalysis Profile 07/08/2018 Urine Color Straw Urine Appearance Clear Urine Specific [place] 1.005 Low 1.010-1.030 Urine pH 6.0 5-9 Urine Urobilinogen Negative Negative Urine Ketones Negative Negative Urine Protein Negative Negative Urine Leukocytes Negative Negative Urine Blood Negative Negative * * Negative 2 Urine Nitrite Negative Negative Urine Bilirubin Negative Negative Urine Glucose Negative Negative 1 Because ethnic data is not always readily available, this report includes an eGFR for both -Americans and non- Americans. The National Kidney Disease Education Program (NKDEP) does not endorse the use of the MDRD equation for patients that are not between the ages of 18 and 70, are , have extremes of body size, muscle mass, or nutritional status, or are non- or non-. According to the National Kidney Foundation, irrespective of diagnosis, the stage of the disease is based on the level of kidney function: Stage Description GFR(mL/min/1.73 m(2)) 1 Kidney damage with normal or decreased GFR 90 2 Kidney damage with mild decrease in GFR 60-89 3 Moderate decrease in GFR 30-59 4 Severe decrease in GFR 15-29 5 Kidney failure <15 (or dialysis) 2 *Ascorbic acid is present which may interfere with detection of blood. Procedures Date CPT Code Description Status 04/06/2018 44254 Nerve Conduction 05-06 Studies Completed 04/06/2018 24581 Needle Electromyography Each Extremity W/Related Completed Paraspinal Areas Encounters Type Date Location Provider CPT E/M Dx Office Visit 04/12/2018 [facility] 27614 M47.26 4:00p [facility] [place] Gomez MD M43.16 M51.27 M48.061 Office Visit 03/11/2018 9:00a [facility] [address]3662 M47.26 [facility] [place] Gomez MD M43.16 M54.5 Office Visit 09/08/2017 9:00a [facility] 34284 M47.26 [facility] [place] Gomez MD M43.16 M54.5 Office Visit 08/25/2017 2:30p [facility] 39991 M47.26 [facility] [place] Gomez MD Plan of Care Future Appointment(s):10/13/2018 8:30 am - Bharat Gomez [facility]/16/2018 3:00 pm - Bharat Gomez MD at [facility]07/23/2018 11:45 am - Bharat Gomez MD at [facility]/15/2018 7:30 am - Bharat Gomez MD at [facility]/12/2018 - Bharat Gomez MDM47.26 Other spondylosis with radiculopathy, lumbar regionFollow up:RV one week, one month, three months. Patient may have excuse off work for 4 weeks after surgery.M43.16 Spondylolisthesis, lumbar region
--- OUTSIDE RECORDS SUMMARY | 2018-07-15 06:05 | XMS REPORT ---
:1965 External Reference #:[id number] Author Organization [facility] Address [address] [place] [address] Phone [phone] Care Team Providers Name Role Phone Ana Cristina Cantor Care Team Information Director Of Email Marketing Unavailable Ana Cristina Cantor Primary Care Physician Unavailable Payers Type Date Identification Numbers Payment Provider Subscriber Health Maintenance Effective: Policy Number: Boni Ruvalcaba Organization (O) 03/07/2016 [id number] [facility] Group Number: [id number] [address] Group Name: [place] [address] PayID: [id number] Problems Description No Information Family History Date Family Member(s) Problem(s) Comments Children None Siblings 3 sisters, 2 bothers. HTN, one sister - bipolar - [place]. Social History Type Date Description Comments Education Highest Level Completed, Industrial and Labor Master's Degree Relations. [place]. 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 Cigarette Use Never Smoked Cigarettes exposed to [...] Solution 0.3mg/0.3ML 2units inject Z91.030 Ana Cristina LKarlene Auto-Inject as Devaughn, needed. M.D. Sumatriptan 08/13/2017 Active Tablets 50mg 9tabs take 1 G43.009 Ana Cristina L. Succinate tablet Devaughn, by mouth M.D. at onset of headache - repeat in 2 hours Celebrex 08/13/2017 Active Capsules 200mg 60caps 1 by M54.5 Ana Cristina LKarlene mouth Devaughn, twice M.D. daily M79.605 Desloratadine 03/18/2016 Active Tablets 5mg 30tabs 1 by J30.89 Ana Cristina LKarlene mouth Devaughn, daily M.D. Vitamin D Active Tablets 500 Unknown (Cholecalciferol ) Fluticasone Active Suspension 50mcg 16units 2 sprays Ana Cristina Mcfadden Propionate /Act each Devaughn, nostril M.D. daily Methocarbamol 03/11/2018 - Hx Tablets 500mg 135tabs 1.5 by M48.00 Shelley 07/09/2018 mouth Zari, three MAT WORKER times a day M79.605 Oxycodone-Acetaminophen 03/11/2018 - Hx Tablets 5-325mg 40tabs 1 by M48.00 Shelley 07/09/2018 mouth Zari, two MAT WORKER times a day as needed M79.605 Physical Therapy 08/28/2017 - Hx evaluate and Ana Cristina Mcfadden 09/10/2017 treat low Ruslan Cantor back pain Adrenaclick 08/13/2017 - Hx 2unit inject as Z91.0 Ana Cristina Mcfadden 0.3MG/0.3ML 09/10/2017 s needed 30 Ruslan Cantor Physical Therapy 08/18/2016 - Hx evaluate and M54.4 Ana Cristina Mcfadden 08/13/2017 treat low 2 Ruslan Cantor back pain the lydia. Mobic 08/18/2016 - Hx Tablets 7.5mg 30tab 1 by mouth M54.4 Ana Cristina LKarlene 08/13/2017 s every 2 Ruslan Cnator morning. Ketoprofen 03/18/2016 - Hx Capsules 75mg 120ca 1 by mouth up M54.5 Ana Cristina L. 09/10/2017 ps to four times Ruslan Cantor a day with food in your stomach No Active 02/14/2016 - Hx Unknown Medications 02/14/2016 Escitalopram 02/14/2016 - Hx Tablets 10mg 30tab 1 by mouth F43.2 Ana Cristina L. Oxalate 08/18/2016 s every day 3 Rusaln Cantor Sumatriptan - Hx Tablets 50mg take 1 tablet Unknown Succinate 09/10/2017 by mouth at onset of headache - repeat in 2 hours Immunizations CPT Code Status Date Vaccine Lot # [id number] Given 12/09/2012 Rabies,Unspecified [id number] Given 12/05/2012 Typhoid Immunization 48419 Given 11/13/2010 Hep A & Hep B Adult, adult dosage, for intramuscular use 72328 Given 07/19/2010 Hep A & Hep B Adult, adult dosage, for intramuscular use 17245 Given 04/17/2010 Hep A & Hep B Adult, adult dosage, for intramuscular use Vital Signs Date Vital Result Comment 03/11/2018 BP Systolic 122 mmHg BP Diastolic [...] 3.4 x10^3/UL 1.5-7.2 Lymph# 1.6 x10^3/UL 0.7-4.9 Charlotte# 0.2 x10^3/UL 0.1-0.9 Gran % 63.1 % 42.2-75.2 Lymph % 32.1 % 20.5-51.1 [place]% 4.8 % 1.7-9.3 Lipid Profile 08/05/2017 Cholesterol [...] 3.6 x10^3/UL 1.5-7.2 Lymph# 1.5 x10^3/UL 0.7-4.9 Charlotte# 0.3 x10^3/UL 0.1-0.9 Gran % 64.1 % 42.2-75.2 Lymph % 29.8 % 20.5-51.1 Charlotte% 6.1 % 1.7-9.3 Comprehensive Metabolic Prof 03/07/2016 [...] Procedures Date CPT Code Description Status 08/13/2017 77719 CPHL SHQ Completed 07/08/2017 Mammogram Completed 05/06/2016 Colonoscopy Completed 04/01/2016 Mammogram Completed Encounters Type Date Location Provider CPT E/M Dx Office Visit 03/11/2018 4:15p [facility] [place] [address] M48.00 M79.605 Office Visit 09/11/2017 9:20a [facility] Ana Cristina Cantor M.D. 88073 M48.00 Office Visit 08/13/2017 9:00a [facility] Ana Cristina Cantor M.D. 80950 Z00.00 Z91.030 G43.009 M54.5 Office Visit 08/18/2016 2:40p [facility] Office Ana Cristina Cantor M.D. 75256 M54.42 Office Visit 03/18/2016 3:40p [facility] Office Ana Cristina Cantor M.D. 66721 M54.5 J30.89 Office Visit 02/14/2016 1:00p [facility] Office Ana Cristina Cantor M.D. 12456 Z00.00 F43.23 E55.9 Plan of Care 07/09/2018 - Ana Cristina Cantor M.D.Z01.818 Encounter for other preprocedural examinationNew Medication:Oxycodone-Acetaminophen 5-325 mgComments:Stop the vit d, Vit c, grapeseed extract, celebrex. will use oxycodone for pain control between now and surgery. If all your blood work and ekg are normal you are cleared for surgery. CXR is normal. You should do well with surgery, you are in excellent health. Take care that you don't get constipated before surgery. You can use miralax and colace both over the counter. You will most likely need even more for a while after surgery. Please start a bowel regimen with the first pain pill to include Miralax as well as a stool softener.Follow up:early August for post op visit.M47.26 Other spondylosis with radiculopathy, lumbar owwrobG91.16 Spondylolisthesis, lumbar nxhnakL01.5 Low back painZ23 Encounter for immunizationComments:flu shot todayAllComments:~B_~U_Medication Management~b _~u_ Patient Understands medications she's taking? Yes No Are there Barriers to Adherence? Yes No Has the patient been asked about herbal supplements and therapies, and OTC meds? Yes No
[2018-07-15] MEDS ORDERED: Famotidine IV* 10 MG/ML 2 ML (20 mg) ONE (06:14)
[2018-07-15] MEDS ORDERED: ceFAZolin 2 GM PREMIX in ORs 0 GM/0 ML BAG IVPB ONE (06:14)
[2018-07-15] MEDS ORDERED: HYDROmorphone INJ1* 1 MG/ML SYRINGE ONE (06:17)
[2018-07-15 06:54] VITALS: BP 143/84
== END 2018-07-16 16:37 | disposition home or self-care (01) | DRG 552 ==
LOC: AA 07-15 05:59
PROVIDERS: ADMIT Neurological Surgery; ATTEND Neurological Surgery
DX: M47.26 Other spondylosis with radiculopathy, lumbar region (principal)
CPT/HCPCS: J0690; J1170

== ENCOUNTER 2018-08-04 05:44 | Inpatient (IN) | payer OTHER ==
[~2018-08-04 05:44] MED LIST: Buffered Lidocaine 0.9% SYRIN* 5 ML/SYR SYRINGE INTRADERM ONE
--- OUTSIDE RECORDS SUMMARY | 2018-08-04 05:47 | XMS REPORT | Continuity of Care Document ---
:1965 External Reference #:[id number] Author Name Jean-Paul Rivera MD Address [address] [place] [address] Care Team Providers Name Role Phone Ana Cristina Cantor M.D. Care Team Information [employer] Consultant Unavailable Ana Cristina Cantor M.D. Primary Care Physician Unavailable Payers Type Date Identification Numbers Payment Provider Subscriber Policy Number: [id number] [employer] Catalina Ruvalcaba Group Number: [id number] [id number] Group Name: [id number] [place] [address] PayID: [id number] Advance Directives Description No Information Available Problems Description No Information Family History Date Family Member(s) Problem(s) Comments General Cancer General Hearing Loss General Heart Attack General Heart Disease Social History Type Date Description Comments Sex Unknown Occupation [employer] Tobacco Use Start: Unknown Never Smoked Cigarettes Tobacco Use Start: Unknown Never Smoked Cigars Tobacco Use Start: Unknown Never Smoked A Pipe Smokeless Tobacco Never Used Smokeless Tobacco ETOH Use Current Alcohol Use Occasionally Tobacco Use Start: Unknown Patient has never smoked Smoking Status Reviewed: 07/22/18 Patient has never smoked Allergies, Adverse Reactions, Alerts Description No Known Drug Allergies Medications Medication Date Status Form Strength Qnty SIG Indications Ordering Provider Imitrex 09/23/ Active Tablets 50mg 9tabs 1 tab by Jean-Paul 2017 mouth for E. Miguel, migraine. MD may repeat in 2 hours if symptoms persist. no more than 2 tabs in 24 hrs or 9 tabs in 1 month Fluticasone 07/11/ Active Suspension 50mcg/Act 16gm 2 sprays Jean-Paul Propionate 2016 each E. Miguel, nostril MD daily Desloratadine / Active Tablets 5mg 1 by Devaughn, 0000 mouth Ana Cristina every day M.D. Multivitamins 00/ Active Capsules 1 by Unknown 0000 mouth every day Vitamin E 00/00/ Active Unknown 0000 Zinc 00/00/ Active Unknown 0000 Vitamin C 00/00/ Active Unknown 0000 Celecoxib /00/ Active Capsules 200mg Unknown 0000 Grape Seed / Active Capsules 250-50mg Unknown 0000 Vitamin C Plus / Active Tablets 500mg daily Unknown 0000 Glucosamine / Active Capsules 1500Com 1 by Unknown Chondroitin 0000 mouth 1500 Complex every day Rigoberto-E / Active Tablets 400mg as Unknown 0000 directed Probiotic / Active Capsules 1 by Unknown Acidophilus 0000 mouth every day No Active 07/11/ Unknown Medications 2015 - 2015 Medrol 07/11/ Hx TBPK 4mg 1pack take as Jean-Paul 2015 - directed Dk Rivera 07/21/ 2017 Augmentin 06/15/ Hx Tablets 875mg 20tabs 1 by 289.1-1 Jean-Paul 2007 - mouth Dk Rivera, 07/11/ twice A 2015 day for 10 days. Nyquil / Hx Liquid Unknown 2015 Dayquil / Hx Liquid Unknown 2015 Escitalopram / Hx Tablets 10mg 1 by Devaughn, Oxalate 0000 - mouth Ana Cristina 07/21/ every day M.D. 2017 Ketoprofen / Hx Capsules 75mg Devaughn, 0000 - Ana Cristina 07/21/ M.D. 2017 Aleve / Hx Capsules 220mg as needed Unknown 2017 Immunizations Description No Information Available Vital Signs Date Vital Result Comment 07/22/2018 11:25am Weight 161.00 lb Weight 73.030 kg Height 64 inches 5'4" Height in cm's 162.6 cm BMI (Body Mass Index) 27.6 kg/m2 09/23/2016 8:53am BP Systolic 133 mmHg BP Diastolic 88 mmHg Heart Rate 80 /min Respiratory Rate 17 /min Weight 176.00 lb Weight 79.834 kg Height 64 inches 5'4" Height in cm's 162.6 cm BMI (Body Mass Index) 30.2 kg/m2 07/11/2016 10:54am BP Systolic 127 mmHg BP Diastolic 76 mmHg Heart Rate 68 /min Respiratory Rate 17 /min Weight 176.38 lb Weight 80.000 kg Height 64 inches 5'4" Height in cm's 162.6 cm BMI (Body Mass Index) 30.3 kg/m2 06/15/2008 4:27pm BP Systolic 132 mmHg BP Diastolic 92 mmHg Heart Rate 75 /min Respiratory Rate 16 /min 05/25/2008 10:54am BP Systolic 150 mmHg BP Diastolic 87 mmHg Heart Rate 77 /min Respiratory Rate 16 /min Results Test Date Facility Test Result H/L Range Note [facility] 08/26/2016 [facility] Bermuda Grass <0.35 kU/L N 1 Allergy Panel c/o Department of [place] [address] [phone] Silver Birch IgE <0.35 kU/L N 2 [place] Maple IgE <0.35 kU/L N 3 Mountain Warrick Allergen IgE <0.35 kU/L N 4 Cocklebur Allergen IgE <0.35 kU/L N 5 Tiger Allergen IgE <0.35 kU/L N 6 Dandelion Allergen IgE <0.35 kU/L N 7 Elm Tree Allergen IgE <0.35 kU/L N 8 Congolese Plantain Allergen IgE <0.35 kU/L N 9 Blooming Valley Allergen IgE <0.35 kU/L N 10 [place] Tree Allerg IgE <0.35 kU/L N 11 [facility] Blue (February) Grass IgE <0.35 kU/L N 12 Driscoll's Quarter Allergen IgE <0.35 kU/L N 13 [place]on Tree Allergen IgE <0.35 kU/L N 14 Greenwood Allergen IgE <0.35 kU/L N 15 Rough Pigweed Allergen IgE <0.35 kU/L N 16 Wyandot Tree Allergen IgE <0.35 kU/L N 17 Common Ragweed (Short) Allerge 0.37 kU/L N 18 Giant Ragweed Allergen IgE <0.35 kU/L N 19 Gates Tree Allergen IgE <0.35 kU/L N 20 [place] Grass Allergen IgE <0.35 kU/L N 21 Sheep Dormont Allergen IgE <0.35 kU/L N 22 Damian Grass Allergen IgE <0.35 kU/L N 23 White Ian Allergen IgE <0.35 kU/L N 24 [place] Tree Allergen IgE <0.35 kU/L N 25 [facility] 08/26/2016 [facility] Black/White Pepper < 0.35 kU/L N 26 Allergy Panel c/o Department [place] [address] [phone] Egg White Allergen IgE <0.35 kU/L N 27 Cat Epithelium Allergen IgE <0.35 kU/L N 28 Chicken Meat Allergen IgE <0.35 kU/L N 29 Chocolate Allergen IgE <0.35 kU/L N 30 Coconut Allergen IgE <0.35 kU/L N 31 Cockroach Allergen IgE <0.35 kU/L N 32 Woodbridge Allergen IgE <0.35 kU/L N 33 Cow Epithelium Allergen IgE <0.35 kU/L N 34 Dog Dander Allergen IgE <0.35 kU/L N 35 Egg Yolk Allergen IgE <0.35 kU/L N 36 Feather Mix Allergy Screen <0.35 kU/L N 37 Garlic Allergen IgE <0.35 kU/L N 38 Guinea Pig Allergen IgE <0.35 kU/L N 39 Horse Dander Allergen IgE <0.35 kU/L N 40 Malt Allergen IgE Antibody <0.35 kU/L N 41 Cow's Milk Allergen IgE <0.35 kU/L N 42 Onion Allergen IgE <0.35 kU/L N 43 Maiden Rock Allergen IgE <0.35 kU/L N 44 Rice Allergen IgE <0.35 kU/L N 45 Soybean Allergen IgE <0.35 kU/L N 46 Tomato Allergen IgE <0.35 kU/L N 47 Wheat Allergen IgE <0.35 kU/L N 48 Khan's Yeast Allergen IgE <0.35 kU/L N 49 [facility] 08/26/2016 [facility] Alternaria tenuis < 0.35 kU/L N 50 Allergy Panel c/o Department of [place] [address] [phone] A pullulans IgE Allergen <0.35 kU/L N 51 Aspergillus Fumigatus IgE <0.35 kU/L N 52 Botrytis Allergen IgE <0.35 kU/L N 53 Ayde albicans Allergen IgE <0.35 kU/L N 54 Cladosporium herbarum IgE <0.35 kU/L N 55 Dermatophagoides farinae IgE <0.35 kU/L N 56 Dermatophagoides pteronyssinus <0.35 kU/L N 57 Epicoccum Allergen IgE <0.35 kU/L N 58 Fusarium moniliforme Allergen <0.35 kU/L N 59 Helminthosporium halodes IgE <0.35 kU/L N 60 House Dust/Michele Allergen IgE <0.35 kU/L N 61 House Dust/Floyd Cassy IgE <0.35 kU/L N 62 Mucor racemosus Allergen IgE <0.35 kU/L N 63 Penicillium notatum Allerg IgE <0.35 kU/L N 64 Rhizopus nigricans Allerg IgE <0.35 kU/L N 65 Stemphyllium IgE Allergen <0.35 kU/L N 66 Trichophyton rubrum Allergen <0.35 kU/L N 67 Ustilago nuda IgE Allergen <0.35 kU/L N 68 1 Class 0 (Negative <0.35) 2 Class 0 (Negative <0.35) 3 Class 0 (Negative <0.35) 4 Class 0 (Negative <0.35) 5 Class 0 (Negative <0.35) 6 Class 0 (Negative <0.35) 7 Class 0 (Negative <0.35) 8 Class 0 (Negative <0.35) 9 Class 0 (Negative <0.35) 10 Class 0 (Negative <0.35) 11 Class 0 (Negative <0.35) 12 Class 0 (Negative <0.35) 13 Class 0 (Negative <0.35) 14 Class 0 (Negative <0.35) 15 Class 0 (Negative <0.35) 16 Class 0 (Negative <0.35) 17 Class 0 (Negative <0.35) 18 Class 1 (Equivocal 0.35-0.69) 19 Class 0 (Negative <0.35) 20 Class 0 (Negative <0.35) Test Performed by: [address] [address] Fur Floor Worker: Ayan Perera II, M.D., Ph.D. 21 Class 0 (Negative <0.35) 22 Class 0 (Negative <0.35) 23 Class 0 (Negative <0.35) 24 Class 0 (Negative <0.35) 25 Class 0 (Negative <0.35) 26 Class 0 (Negative <0.35) 27 Class 0 (Negative <0.35) 28 Class 0 (Negative <0.35) 29 Class 0 (Negative <0.35) 30 Class 0 (Negative <0.35) 31 Class 0 (Negative <0.35) 32 Class 0 (Negative <0.35) 33 Class 0 (Negative <0.35) 34 Class 0 (Negative <0.35) 35 Class 0 (Negative <0.35) 36 Class 0 (Negative <0.35) 37 Class 0 (Negative <0.35) ADDITIONAL INFORMATION Feather Panel 2: Goose feathers Chicken feathers Duck feathers Dresser feathers Analyte Specific Reagent: This test was developed and its performance characteristics determined by [facility]. It has not been cleared or approved by the U.S. Food and Drug Administration. 38 Class 0 (Negative <0.35) 39 Class 0 (Negative <0.35) 40 Class 0 (Negative <0.35) Test Performed by: [place] [address] Fur Floor Worker: Ayan Perera II, M.D., Ph.D. 41 Class 0 (Negative <0.35) 42 Class 0 (Negative <0.35) 43 Class 0 (Negative <0.35) 44 Class 0 (Negative <0.35) 45 Class 0 (Negative <0.35) 46 Class 0 (Negative <0.35) 47 Class 0 (Negative <0.35) 48 Class 0 (Negative <0.35) 49 Class 0 (Negative <0.35) 50 Class 0 (Negative <0.35) 51 Class 0 (Negative <0.35) 52 Class 0 (Negative <0.35) 53 Class 0 (Negative <0.35) 54 Class 0 (Negative <0.35) 55 Class 0 (Negative <0.35) 56 Class 0 (Negative <0.35) 57 Class 0 (Negative <0.35) 58 Class 0 (Negative <0.35) 59 Class 0 (Negative <0.35) 60 Class 0 (Negative <0.35) 61 Class 0 (Negative <0.35) 62 Class 0 (Negative <0.35) Test Performed by: [facility] [address] Fur Floor Worker: Ayan Perera II, M.D., Ph.D. 63 Class 0 (Negative <0.35) 64 Class 0 (Negative <0.35) 65 Class 0 (Negative <0.35) 66 Class 0 (Negative <0.35) 67 Class 0 (Negative <0.35) 68 Class 0 (Negative <0.35) ADDITIONAL INFORMATION This test was developed using an analyte specific reagent. Its performance characteristics were determined by [facility] in a manner consistent with CLIA requirements. This test has not been cleared or approved by the U.S. Food and Drug Administration. Procedures Date Code Description Status 07/22/2018 12993 Nasal Endoscopy, Diagnostic Completed 07/11/2016 21095 Nasal Endoscopy, Diagnostic Completed 05/25/2008 79646 Fiberoptic Laryngoscopy Completed Encounters Type Date Location Provider Dx Diagnosis Office Visit 09/23/2016 9:00a Sharon,After 09/07/07 Jean-Paul Rivera MD R51 Headache G50.1 Atypical facial pain Office Visit 08/19/2016 9:45a Sharon,After 09/07/07 Jean-Paul Rivera MD R51 Headache J30.9 Allergic rhinitis, unspecified J32.9 Chronic sinusitis, unspecified Office Visit 07/11/2016 11:00a Sharon,After 09/07/07 Jean-Paul Root J31.0 Chronic MD Miguel rhinitis R09.82 Postnasal drip R42 Dizziness and giddiness Office Visit 06/15/2008 4:15p Sharon,After 09/07/07 Jean-Paul Root 784.1 Pain Of MD Miguel Throat 289.1-1 Adenitis, Cervical/Chronic Office Visit 05/25/2008 10:45a Sharon,After 09/07/07 Jean-Paul Root 784.1 Pain Kashif Rivera MD Throat 306.4-1 Globus Plan of Treatment No Information Available
[2018-08-04] MEDS ORDERED: Acetaminophen TAB* 325 MG PO ONE (06:00)
[2018-08-04] MEDS ORDERED: Gabapentin CAP(*) 300 MG PO ONE (06:00)
[2018-08-04] MEDS ORDERED: Gabapentin CAP(*) 300 MG ONE (06:47)
[2018-08-04] MEDS ORDERED: Acetaminophen TAB* 325 MG ONE (06:48)
[2018-08-04] MEDS ORDERED: Buffered Lidocaine 0.9% SYRIN* 5 ML/SYR SYRINGE ONE (06:48)
[2018-08-04] MEDS ORDERED: ceFAZolin 2 GM PREMIX in ORs 2 GM/50 ML BAG IVPB ONE (06:48)
[2018-08-04] MEDS ORDERED: Thrombin 5,000 UNITS* 1 APPLIC KIT - topical use - TOPICAL ONE (06:58)
[2018-08-04] MEDS ORDERED: Lidocaine 1% MPF wEPI 200,000* 30 ML SDV ONE (06:58)
[2018-08-04] MEDS ORDERED: Bacitracin IV* 50,000 UNITS INJ ONE (06:58)
[2018-08-04] MEDS ORDERED: fentaNYL* 50 MCG/ML 2 ML VIAL (100 MCG VIAL) ONE ×4 (07:17→12:59)
[2018-08-04] MEDS ORDERED: Midazolam* 1 MG/ML 2 ML VIAL (2 MG) ONE (07:17)
[2018-08-04] MEDS ORDERED: Cisatracurium* 2 MG/ML MDV 5 ML ONE (08:28)
[2018-08-04] MEDS ORDERED: Lidocaine 2% PF * 5 ML VIAL ONE (08:28)
[2018-08-04] MEDS ORDERED: DiMENhydriNATE IV* 50 MG/ML VIAL IV PUSH PRN (09:28)
[2018-08-04] MEDS ORDERED: diPHENhydraMINE IV* 50 MG/ML 1 ml VIAL (BENADRYL) IV PRN (09:28)
[2018-08-04] MEDS ORDERED: Ondansetron INJ* 2 MG/ML VIAL IV PRN (09:28)
[2018-08-04] MEDS ORDERED: Scopolamine 1.5 mg* PATCH TRANSDERM PRN (09:28)
[2018-08-04] MEDS ORDERED: Naloxone* 0.4 MG/ML 1 ML VIAL IV PRN (09:28)
[2018-08-04] MEDS ORDERED: PROCHLORPERAZINE INJ 5 MG/ML 2 ML VIAL IV PRN (09:28)
[2018-08-04] MEDS ORDERED: Acetaminophen TAB* 325 MG PO PRN (09:28)
[2018-08-04] MEDS ORDERED: Propofol* 10 MG/ML 20 ML BTL ONE ×2 (10:10→10:49)
[2018-08-04] MEDS ORDERED: EPHEDrine (Pressors)* 50 MG/ML VIAL ONE (10:19)
[2018-08-04] MEDS ORDERED: Ondansetron INJ* 2 MG/ML VIAL ONE ×2 (10:49→14:20)
[2018-08-04] MEDS ORDERED: Dexamethasone IV* 4 MG/ML 1 ML (4 MG) ONE (10:49)
[2018-08-04] MEDS ORDERED: Famotidine IV* 10 MG/ML 2 ML (20 mg) ONE (10:49)
[2018-08-04] MEDS: fentaNYL* 50 MCG/ML 2 ML VIAL (100 MCG VIAL) IV PRN ×4 (13:01→13:51)
[2018-08-04] MEDS ORDERED: HYDROmorphone INJ1* 1 MG/ML SYRINGE ONE (13:20)
[2018-08-04] MEDS ORDERED: oxyCODONE/Acetamin 5/325 MG* TAB ONE ×2 (13:20→13:57)
[2018-08-04] MEDS: oxyCODONE/Acetamin 5/325 MG* TAB PO PRN ×2 (13:23→13:58)
[2018-08-04] MEDS: HYDROmorphone INJ1* 1 MG/ML SYRINGE IV PRN ×2 (13:29→13:55)
[2018-08-04] MEDS ORDERED: Magnesium Hydroxide LIQ* 30 ML UDC PO PRN (14:03)
[2018-08-04] MEDS ORDERED: HYDROcodone/ACETAMIN 5-325 MG* 1 TAB PO PRN (14:03)
[2018-08-04] MEDS: HYDROcodone/ACETAMIN 5-325 MG* 1 TAB PO PRN (18:15)
[2018-08-05] MEDS: HYDROcodone/ACETAMIN 5-325 MG* 1 TAB PO PRN ×3 (01:22→11:31)
--- NOTE | 2018-08-05 08:58 | OP ---
DATE OF OPERATION: 08/04/18 - ROOM #349 DATE OF : 63 SURGEON: Bharat Gomez MD TUMBLER OPERATOR: ANNE MARIE Loco. The case was done with the assistance of surgical PA because of the complexity of the case. PRE-OP DIAGNOSES: Degenerative disk disease and grade 1 to 2 spondylolisthesis , L4- 5. POST-OP DIAGNOSES: Degenerative disk disease and grade 1 to 2 spondylolisthesis , L4-5. OPERATIVE PROCEDURE: The patient underwent a left L4-5 minimally invasive TLIF with PEEK interbody expandable cage, DBX autologous iliac crest bone graft through a separate incision. Intraoperative navigation with intraoperative electrophysiological monitoring with bilateral L4 and L5 pedicle screws. INDICATIONS: The patient is a very pleasant 52-year-old female with complaints of back pain radiating mostly to the left lower extremity with MRI findings consistent with a grade 2 spondylolisthesis at L4-5, which was progressing in severity. The patient unfortunately failed conservative treatment modalities and she was offered the option of surgical intervention. After explaining the expectations, limitations, and possible complications of the procedure to the patient and one of her close friends with complications including but not limited to bleeding, infection, risk of injury to adjacent structures, coma, paralysis, , need for additional procedures, anesthesia risks, stroke, blindness, cancer, instability, hardware failure, adjacent level disease, pseudoarthrosis, spinal fluid leak, loss of bladder or bowel control, need for tracheostomy or gastrostomy, need for prolonged ICU stay, development of delayed hematoma, injury to the big vessels or intra-abdominal content, scar formation, neuropathy, the patient was agreeable to proceed with surgery and informed consent was obtained. She understood that her condition may not improve, in fact may get worse after surgery and that she may need to have additional procedure in the future. She also understood that operative plan may be modified according to intraoperative findings and conditions and that surgery may be done in more than one stage or abandoned. ESTIMATED BLOOD LOSS: 30 cc. COMPLICATIONS: None. DESCRIPTION OF PROCEDURE: The patient was brought to the operating room and was placed under general anesthesia by the anesthesia team. She was carefully positioned prone on Brenton table and all bony prominences were meticulously padded. Her skin was prepped and draped in the standard fashion. After appropriate surgical pause and patient identification, a small incision over the right iliac crest was marked on the skin and was infiltrated with local anesthetic. The Corex needle was then inserted and autologous bone graft was harvested and was kept for the arthrodesis part of the procedure. Through the same incision, the pin for the stereotactic navigating star was inserted and secured in place. Then, intraoperative OR imaging was obtained and the patient' s data was transferred to the navigation platform. Under stereotactic navigation, 2 paramedian incisions were marked on the skin and were infiltrated with local anesthetic. The skin incision was performed with a #10 surgical blade and under stereotactic navigation, the pedicles of L4 and L5 were cannulated with high-speed drill and awl-tip tap and pedicle screws were inserted. Medtronic Voyager ATS screws were inserted with 7.5 x 40 mm length for the L5 level and 6.5 x 45 mm length for L4. Under stereotactic navigation, a separate incision on the fascia on the left side was performed and over a series of dilators, an 18-mm METRx tubular retractor was inserted and was centered over the left L4 sara-lamina and the medial portion of the facet. Operative microscope was brought into the field and a small residual amount of paraspinal musculature was then gently elevated with Bovie cautery and the lamina, on the left side, the medial part of the facet as well as the lateral part of the pars was easily identified and appropriate surgical level and borders of the exposure were identified with the use of intraoperative navigation. A high-speed drill was used to fashion a partial laminectomy of L4 extended slightly towards the right side and removing the medial part of the facet en bloc, which was saved and used for the arthrodesis part of the procedure. The yellow ligament was gently removed with Kerrison punches and the thecal sac and the left L5 nerve root was readily identified. Of note, the thecal sac was found to be under significant amount of tension as expected from the preoperative imaging. With use of bipolar cautery, the epidural vessels were gently coagulated and the dura was gently retracted towards the midline with nerve root retractor. At this time, the diskectomy and preparation of the disk space was performed after incising annulus fibrosus of L4-5 with 15 surgical blade and for the preparation of the disk space, stereotactic guided instrumentation was used. A Medtronic Voyager Elevate expandable cage 8 mm x 28 mm expandable up to 12 mm in height was then inserted after protecting carefully the exposed thecal sac and nerve root. Prior to the insertion, the cage was filled with autologous bone graft mixed with DBX while the prepared disk space was also packed with a mixture of autologous bone graft and DBX body. The Elevate cage was gently expanded and after the wood heel flap inserter was removed and after confirmation of meticulous hemostasis and copious irrigation and meticulous inspection, the tubular retractor was gently removed. The dorsal fascia was approximated with 0 interrupted Vicryl sutures. Then, attention was brought to insert the 2 rods at the screw head and connect them together with screw head caps. 40-mm rods were used for this case. A second OR imaging was then obtained which confirmed excellent placement of all hardware. The screw head caps were tightened and the extenders were removed and after copious irrigation, meticulous hemostasis, and meticulous inspection, the wounds were closed by layers with 0 interrupted Vicryl sutures to approximate the dorsal fascia while the subcutaneous tissue was appropriated with interrupted 2-0 Vicryl sutures. The skin was then covered with Dermabond. The same was done for the incision at the site of the iliac crest after removing the navigation star and the navigation pin. At the end of the procedure, all counts were reported to be correct. The patient remained hemodynamically stable throughout the case. Intraoperative neuro- physiological monitoring remained stable throughout the case. The case was done with the assistance of the surgical PA because of the complexity of the case. The patient was then turned supine, was extubated, and was transferred to Recovery in excellent condition. [id number]/CPS #: [id number] MTDD
--- NOTE | 2018-08-05 09:43 | PN ---
Progress Note - Progress Note Date of Service: 08/05/18 SOAP: Subjective: [S/p L4-5 TLIF, POD #1. Feeling well this morning. Reports low back soreness, controlled with PO medication. Ambulating independently. Denies nausea, headache. Eating and drinking without difficulty. Eager to go home.] Objective: [ Vital Signs: Temp Pulse Resp BP Pulse Ox 99.6 F 68 16 117/71 100 08/05/18 11:15 08/05/18 11:15 08/05/18 11:31 08/05/18 11:15 08/05/18 11:15 General: Alert and sitting up in chair, NAD Neuro: Motor and sensory intact. Incision: Intact and dressing in place. No swelling or tenderness. Xray lumbar spine shows good hardware placement. ] Assessment: [Satisfactory post-op course.] Plan: [1. Discharge home today 2. Discharge instructions discussed]
[2018-08-05 12:05] VITALS: BP 117/71
--- NOTE | 2018-08-06 10:40 | DS ---
DISCHARGE SUMMARY: DATE OF ADMISSION: 08/04/18. DISCHARGE DATE: 08/05/18. PREOPERATIVE DIAGNOSES: Degenerative disk disease and spondylolisthesis at L4-5. POSTOPERATIVE DIAGNOSES: Degenerative disk disease and spondylolisthesis at L4-5. PROCEDURE: The patient underwent a left L4-5 minimally invasive TLIF with PEEK interbody expandable cage, DBX autologous iliac crest bone graft and bilateral L4 and L5 pedicle screw placement. DISPOSITION: Home. CONDITION ON DISCHARGE: Good. SUMMARY: The patient is a very pleasant 52-year-old female with complaints of back pain radiating mo stly to the left lower extremity with MRI findings consistent with a grade 1 to 2 spondylolisthesis a t L4-5 with the progression in severity. The patient was offered the option of surgical intervention , after conservative measures did not help with her pain. She tolerated the above procedure well and was transferred to the regular floor. On postoperative day 1, she was doing very well. She was abl e to ambulate, tolerate p.o. well. She was able to void. She was neurologically intact with improve ment of her preoperative symptoms, she was able to tolerate p.o. well, and have adequate pain control with p.o. medications. The patient was found to be able to be discharged home. Full discharge instr uctions were given to the patient. [id number]/[facility] #: [id number]
[2018-08-07] MEDS ORDERED: Scopolamine PATCH Remove* 1 NOTE MISC PATCH OFF ONE (09:31)
== END 2018-08-05 12:15 | disposition home or self-care (01) | DRG 460 ==
LOC: AA 05:44 → SSU 13:59
PROVIDERS: ADMIT Neurological Surgery; ATTEND Neurological Surgery
PROC: 4A11X4G Monitoring of Peripheral Nervous Electrical Activity, Intraoperative, External Approach (ICD-10-PCS; 2018-08-04)
PROC: 8E0WXBZ Computer Assisted Procedure of Trunk Region (ICD-10-PCS; 2018-08-04)
PROC: 0SG00AJ Fusion of Lumbar Vertebral Joint with Interbody Fusion Device, Posterior Approach, Anterior Column, Open Approach (ICD-10-PCS; principal; 2018-08-04 07:30)
DX: M43.16 Spondylolisthesis, lumbar region (principal); M51.36 Other intervertebral disc degeneration, lumbar region; M48.061 Spinal stenosis, lumbar region without neurogenic claudication; M12.88 Other specific arthropathies, not elsewhere classified, other specified site; M25.48 Effusion, other site; M41.9 Scoliosis, unspecified; M47.26 Other spondylosis with radiculopathy, lumbar region; G43.909 Migraine, unspecified, not intractable, without status migrainosus; F41.9 Anxiety disorder, unspecified; F32.9 Major depressive disorder, single episode, unspecified; Z91.038 Other insect allergy status; Z98.51 Tubal ligation status; Z85.828 Personal history of other malignant neoplasm of skin; Z82.49 Family history of ischemic heart disease and other diseases of the circulatory system; Z82.5 Family history of asthma and other chronic lower respiratory diseases; Z80.0 Family history of malignant neoplasm of digestive organs; Z81.8 Family history of other mental and behavioral disorders
CPT/HCPCS: 36415; 72100; 76001; 86850; 86900; 86901; A9270-GY; J0690; J1100; J1170; J2001; J2250; J2405; J2704; J3010

== ENCOUNTER 2019-10-13 11:36 | Day surgery (SDC) | payer OTHER ==
[2019-10-13] MEDS ORDERED: Lidocaine 1% w EPI 1:200,000* SDV 30 ML VIAL ONE (12:05)
[2019-10-13] MEDS ORDERED: Sodium Bicarbonate 8.4% IV* 50 ML VIAL ONE (12:05)
[2019-10-13] MEDS ORDERED: Bupivacaine 0.25% SDV* 30 ML ONE (13:10)
[2019-10-13 13:48] VITALS: BP 138/67
--- NOTE | 2019-10-13 23:37 | OP ---
DATE OF OPERATION: 10/13/19 [facility] DATE OF : 63 SURGEON: Gabriel Schulz MD COMBINATION TECHNICIAN: ANNE MARIE Gavin ANESTHESIOLOGIST: None. ANESTHESIA: Local only with 1% buffered lidocaine with epinephrine. PRE-OP DIAGNOSIS: Right middle trigger finger. POST-OP DIAGNOSIS: Right middle trigger finger. OPERATIVE PROCEDURE: Right middle trigger finger release. FINDINGS: See above and below. ESTIMATED BLOOD LOSS: 2 mL. COMPLICATIONS: None. DESCRIPTION OF PROCEDURE: Ms. Ruvalcaba was seen in the preoperative holding area. We had a time-out and I injected the operative site with local anesthetic. We came back to the operating room. The arm was prepped and draped in the usual fashion and time-out was performed. The arm was exsanguinated and a forearm based tourniquet was inflated to 200 mmHg. I made a 1 cm incision in the distal palmar crease. Dissection was carried down. Full thickness flaps were raised off the tendon sheath. The A1 josue was incised longitudinally. I released the fascia proximally with tenotomy scissors. There was lot of fraying underneath the A1 josue. The tendon was cleaned up. At this point, everything was looking good. I had her flex the fingers multiple times. There was no triggering. The wound was irrigated out and the skin closed with 4-0 nylon suture. A soft dressing was applied and she was taken to the recovery room in stable condition. [id number]/[facility]PS #: [id number] MTDD
== END 2019-10-13 13:38 | disposition home or self-care (01) ==
LOC: OREAST 11:36
PROVIDERS: ATTEND Orthopaedic Surgery Hand Surgery
DX: M65.331 Trigger finger, right middle finger (principal); F32.9 Major depressive disorder, single episode, unspecified
CPT/HCPCS: J2001; J3490